=== PATIENT | female | born 1995 | race Caucasian/White ===

== ENCOUNTER 2024-10-02 12:47 | Emergency (ER) | payer MEDICAID ==
[~2024-10-02] VITALS: Ht 154.9 cm; Wt 62.6 kg
[2024-10-02 13:08] VITALS: TEMP 98.5
[2024-10-02 14:08] LABS: BASOPHILS % (AUTO) 0.4 % (0-1); EOSINOPHILS % (AUTO) 0.1 % (0-6); HEMATOCRIT 41.7 % (35.0-45.0); HEMOGLOBIN 14.1 g/dl (12.0-16.0); LYMPHOCYTES # (AUTO) 0.7 X10'3 (1.1-4.8); LYMPHOCYTES % (AUTO) 6.9 % (21-51); MEAN CORPUSCULAR HEMOGLOBIN 28.9 PG (27.0-31.0); MEAN CORPUSCULAR HGB CONC 33.8 g/dL (33.0-36.5); MEAN CORPUSCULAR VOLUME 85.6 FL (78-98); MEAN PLATELET VOLUME 7.6 FL (7.4-10.4); MONOCYTES # (AUTO) 0.2 X10'3 (0-0.9); MONOCYTES % (AUTO) 2.1 % (2-12); NEUTROPHILS # (AUTO) 9.9 X10'3 (1.8-7.7); NEUTROPHILS % (AUTO) 90.5 % (42-75); PLATELET COUNT 351 X10'3 (140-440); RED BLOOD COUNT 4.87 X10'6 (4.20-5.60); RED CELL DISTRIBUTION WIDTH 13.6 % (11.5-14.5); WHITE BLOOD COUNT 10.9 X10'3 (4.5-11.0)
[2024-10-02 14:25] LABS: ALANINE AMINOTRANSFERASE 68 U/L (12-78); ALBUMIN 4.6 G/DL (3.4-5.0); ALBUMIN/GLOBULIN RATIO 1.6 (1.1-1.5); ALKALINE PHOSPHATASE 93 IU/L (46-116); ANION GAP 14 (8-16); ASPARTATE AMINO TRANSFERASE 69 U/L (10-37); BILIRUBIN,TOTAL 1.4 MG/DL (0.1-1.0); BLOOD UREA NITROGEN 9 MG/DL (7-18); CALCIUM 8.7 MG/DL (8.5-10.1); CHLORIDE 103 MMOL/L (99-107); CREATININE 0.69 MG/DL (0.40-0.90); GLUCOSE 102 MG/DL (70-104); LIPASE 20 U/L (16-77); POTASSIUM 3.6 MMOL/L (3.5-5.1); SODIUM 140 MMOL/L (135-145); TOTAL CARBON DIOXIDE 22.6 MMOL/L (24-32); TOTAL PROTEIN 7.5 G/DL (6.4-8.2); eCRCL 92 ML/MIN; eGFR > 90 ML/MIN
--- NOTE | 2024-10-02 14:49 | Physician Documentation ---
History of Present Illness ~ Chief Complaint: ETOH Withdrawl Stated Complaint: "I MAY HAVE ALCOHOL POISIONING" Time Seen by MD: 14:29 HPI 29-year-old female since the ED with a complaint of a seven day binge which has led to ETOH withdrawal. States she was very shaky. She said she drank 4-5 buzzed balls and beers daily. Currently complaining of nausea abdominal pain general illness.. Denies any dark stools Tetanus within 5 years?: No Medication Reconciliation Allergies: Coded Allergies: No Known Allergies (Unverified , 10/02/24) Scheduled PRN Chlordiazepoxide Hcl (Librium), 2 CAP PO Q2H PRN PRN for anxiety Review of Systems All Other Systems at this time: Reviewed and Negative Physical Exam Vital Signs: Temperature: 98.5, Source: Oral, Heart Rate: 102, Respiratory Rate: 18, BP: 146/94, Pulse Oximetry: 99, Weight: 62.600 Oxygen Flow Rate: 0 Physical Exam General: Alert, no apparent distress. Mildly tremulous Respiratory: Lungs clear, no respiratory distress. Cardiovascular: Regular rate and rhythm, no murmurs. Gastrointestinal: Soft, nontender, nondistended. Bowels sounds present. Neurologic: Oriented x4. Psychiatric: Normal mood and affect. Skin: Normal color, warm and dry. No edema, no ecchymosis. Progress Results/Orders Results/Orders Completed Orders - FELIZ VILLEGAS [employer] Pantoprazole 40mg Iv (Protonix 40mg Iv) (10/02/24 14:45) Ondansetron Inj. (Zofran 4mg/2ml Vial) (10/02/24 14:45) Diazepam Inj (Valium Inj) (10/02/24 14:45) Normal Saline 1000ml (Sodium Chloride 10 (10/02/24 14:45) Medications Received in ER Medications (Trade) Dose Ordered Sig/Blu Route PRN Reason Start Time Stop Time Status Last Admin Dose Admin (Protonix 40mg IV) 40 mg NOW ONCE IV 10/02/24 14:45 10/02/24 14:48 DC 10/02/24 15:20 40 MG (Zofran 4mg/2ml vial) 4 mg ONCE ONCE IV 10/02/24 14:45 10/02/24 14:48 DC 10/02/24 15:19 4 MG (Valium inj) 10 mg ONCE ONCE IV 10/02/24 14:45 10/02/24 14:48 DC 10/02/24 15:20 10 MG (sodium chloride 1000ml IV soln) 2,000 ml ONCE ONCE IVB 10/02/24 14:45 10/02/24 14:49 DC 10/02/24 15:20 2,000 ML Vital Signs 10/02/24 10/02/24 10/02/24 10/02/24 13:08 14:39 14:45 15:55 Temp 98.5 Pulse 109 102 98 Resp 16 18 18 18 B/P (MAP) 133/85 146/94 (111) 133/71 Pulse Ox 98 99 98 O2 Flow Rate 0 Laboratory Tests Test 10/02/24 13:54 10/02/24 15:26 White Blood Count 10.9 Red Blood Count 4.87 Hemoglobin 14.1 Hematocrit 41.7 Mean Corpuscular Volume 85.6 Mean Corpuscular Hemoglobin 28.9 Mean Corpuscular Hemoglobin Concent 33.8 Red Cell Distribution Width 13.6 Platelet Count 351 Mean Platelet Volume 7.6 Neutrophils (%) (Auto) 90.5 H Lymphocytes (%) (Auto) 6.9 L Monocytes (%) (Auto) 2.1 Eosinophils (%) (Auto) 0.1 Basophils (%) (Auto) 0.4 Neutrophils # (Auto) 9.9 H Lymphocytes # (Auto) 0.7 L Monocytes # (Auto) 0.2 Eosinophils # (Auto) 0.0 Basophils # (Auto) 0.0 CBC Comment Sodium Level 140 Potassium Level 3.6 Chloride Level 103 Carbon Dioxide Level 22.6 L Anion Gap 14 Blood Urea Nitrogen 9 Creatinine 0.69 Estimated GFR/1.73 m2 > 90 BUN/Creatinine Ratio 13.0 Glucose Level 102 Calcium Level 8.7 Total Bilirubin 1.4 H Aspartate Amino Transf (AST/SGOT) 69 H Alanine Aminotransferase (ALT/SGPT) 68 Alkaline Phosphatase 93 Total Protein 7.5 Albumin 4.6 Globulin 2.9 Albumin/Globulin Ratio 1.6 H Lipase 20 Chemistry Comments Urine Specimen Description Cln catch midstream Urine Color Brown Urine Clarity Cloudy Urine pH 8.5 Urine Specific [place] 1.010 Urine Protein >=300 H Urine Glucose (UA) Negative Urine Ketones 40 H Urine Occult Blood Large H Urine Nitrite Negative Urine Bilirubin Small Urine Urobilinogen 1.0 Urine Leukocyte Esterase Negative Urine RBC 20-50 Urine WBC 0-4 Urine Squamous Epithelial Cells Many Urine Bacteria 4+ Urine Mucus Moderate Urine Culture Indicated Not ind Volume Urine Centrifuged 5 ml Urine HCG, Qualitative Negative Urine Comment Low volume Medical Decision Making Findings And received Zofran fluids Protonix and 10 mg of Valium. After receiving medications he reported overall improved symptoms. Not present in severe alcohol withdrawal. I advised her on how to use Librium has a tapering drug to get through alcohol withdrawal. Sent this drug to her pharmacy she verbalized understanding. Differential Dx:Considerations: Intoxication - ETOH, Intoxication - other drug, Sub. Abuse -continuous, Sub. Abuse-intermittent, Skull fracture, Fracture - other bone, Personality disorder, Closed head injury, Cervical spine injury, Abrasion, Confusion, Hematoma, Laceration, Foreign body, Dehydration, Encephal opathy, Hepatitis, Pancreatitis, Thiamine deficiency, Other Departure Disposition: 01 HOME / SELF CARE / HOMELESS Impression: Primary Impression: Alcohol withdrawal syndrome Condition: Stable Discharge Instructions: Alcohol Intoxication Referrals: NO PRIMARY CARE PROVIDER (PCP) Prescriptions Chlordiazepoxide Hcl (Librium) 25 Mg Capsule 2 CAP PO Q2H PRN PRN for anxiety for 2 Days, #24 CAP 0 Refills Prov: FELIZ VILLEGAS NP 10/02/24 Education Educated: Patient Educated regarding: diagnosis Signature Scribe Signature: d Attestation: The note accurately reflects work and decisions made by me.Feliz Villegas - PERRI 10/02 18:34 FELIZ VILLEGAS NP October 02, 2024 14:49
[2024-10-02] MEDS: ondansetron/PF 4mg/2ml inj IV ONE (15:19)
[2024-10-02] MEDS: normal saline 1000ML IV soln IVB ONE (15:20)
[2024-10-02] MEDS: pantoprazole 40 MG vial IV ONE (15:20)
[2024-10-02] MEDS: diazepam inj 5 MG/ML inj. IV ONE (15:20)
[2024-10-02] MEDS ORDERED: CHLO25CA10 PO (15:27)
[2024-10-02 15:55] VITALS: BP 133/71; PULSE 98; RESP 18; O2SAT 98
[2024-10-02 16:20] LABS: BILIRUBIN,URINE SMALL (Neg); CLARITY,URINE CLOUDY (Clear); GLUCOSE, URINE NEGATIVE (Neg); KETONES,URINE 40 mg/dl (Neg); LEUKOCYTE ESTERASE ,URINE NEGATIVE (Neg); NITRITES, URINE NEGATIVE (Neg); OCCULT BLOOD,URINE LARGE (Neg); PH,URINE 8.5 (4.8-8.0); PROTEIN,URINE >=300 mg/dl (Neg)
[2024-10-02 16:24] LABS: URINE HCG NEGATIVE (NEG)
[2024-10-02 16:26] LABS: COLOR,URINE BROWN (Yellow); UA COLLECTION TYPE CLN CATCH MIDSTREAM
[2024-10-02 16:28] LABS: BACTERIA,URINE 4+ /HPF (Neg); MUCUS STRANDS MODERATE /LPF (Neg); RBC,URINE 20-50 /HPF (0-2); SQUAMOUS EPITHELIAL CELL,UR MANY /LPF (FEW); WBC,URINE 0-4 /HPF (0-4)
== END 2024-10-02 15:56 | disposition home or self-care (01) ==
LOC: ER 12:49
DX: F10.239 Alcohol dependence with withdrawal, unspecified (principal); R11.0 Nausea; R10.9 Unspecified abdominal pain; Y90.9 Presence of alcohol in blood, level not specified
CPT/HCPCS: 36415; 80053; 81001; 81025; 83690; 85025; 96361; 96374; 96375; 99284; J2405; J2470; J3360; J7030